=== PATIENT | female | born 1995 | race Caucasian/White ===

== ENCOUNTER 2018-09-06 15:11 | Emergency (ER) | payer OTHER, SELFPAY ==
[2018-09-06 16:48] LABS: Urine Bacteria 20-50 /HPF (<20); Urine Culture Reflex Order NOT NEEDED; Urine RBC <5 /HPF (NONE SEEN)
[2018-09-06 16:50] LABS: Urine Blood 1+ (NEG); Urine Glucose NEGATIVE (NEG); Urine Protein 1+ (NEG)
--- NOTE | 2018-09-06 17:05 | ER ---
Nurse's Notes [facility] Name: Ryan Hopkins Age: 23 yrs Sex: Female : 1995 Arrival Date: 09/06/2018 Time: 15:14 Bed 25 Private MD: Out, of [facility] Diagnosis: Influenza due to identified novel influenza A virus;Urinary tract infection, site not specified Presentation: 09/06 15:19 Presenting complaint: Patient states: Diarrhea, vomiting, productive cough, congestion, aj1 chest pain, back pain, body aches and fatigue since yesterday. Reports fever TMax 104.2. Transition of care: patient was not received from another setting of care. Onset of symptoms was September 05, 2018. Risk Assessment: Do you want to hurt yourself or someone else? Patient reports no desire to harm self or others. Initial Sepsis Screen: Does the patient meet any 2 criteria? HR > 90 bpm. No. Patient's initial sepsis screen is negative. Does the patient have a suspected source of infection? Yes: Productive cough/pneumonia. Care prior to arrival: None. 15:19 Method Of Arrival: Ambulatory aj 15:19 Acuity: TANNER 3 aj1 Triage Assessment: 15:21 General: Appears in no apparent distress. uncomfortable, Behavior is calm, cooperative, aj1 appropriate for age. Pain: Complains of pain in back and chest Pain currently is 5 out of 10 on a pain scale. Neuro: Level of Consciousness is awake, alert, obeys commands. Cardiovascular: Patient's skin is warm and dry. Respiratory: Airway is patent Respiratory effort is even, unlabored, Respiratory pattern is regular, symmetrical. GI: Reports diarrhea, nausea, vomiting. 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 - Social history:: Smoking status: Patient/guardian denies using tobacco. - Ebola Screening: : Patient denies travel to an Ebola-affected area in the 21 days before illness onset. Screenin:33 Abuse screen: Denies threats or abuse. Denies injuries from another. Nutritional rv screening: No deficits noted. Tuberculosis screening: No symptoms or risk factors identified. Fall Risk None identified. Assessment: 16:00 General: Appears in no apparent distress. comfortable, Behavior is calm, cooperative. rv 16:00 Pain: Denies pain. Neuro: Level of Consciousness is awake, alert, obeys commands, rv Oriented to person, place, time, situation. Cardiovascular: Capillary refill < 3 seconds. Respiratory: Airway is patent. GI: Abdomen is round. GI: Reports nausea, vomiting. : No signs and/or symptoms were reported regarding the genitourinary system. EENT: No signs and/or symptoms were reported regarding the EENT system. Derm: Skin is intact. Musculoskeletal: No signs and/or symptoms reported regarding the musculoskeletal system. 16:34 Reassessment: Patient appears in no apparent distress at this time. rv 17:33 Reassessment: Patient appears in no apparent distress at this time. Vital Signs: 15:21 BP 122 / 61; Pulse 108; Resp 20; Temp 98.8; Pulse Ox 96% on R/A; Weight 113.4 kg (R); aj1 Height 5 ft. 6 in. (167.64 cm) (R); Pain 5/10; 17:00 BP 106 / 63; Pulse 108; Resp 16; Temp 103.2(O); Pulse Ox 95% ; hj 17:00 BP 118 / 101; Pulse 99; Resp 19; Pulse Ox 95% on R/A; hj 15:21 Body Mass Index 40.35 (113.40 kg, 167.64 cm) aj1 ED Course: 15:14 Patient arrived in ED. mr 15:15 Out, [facility] is Private Physician. mr 15:20 Triage completed. aj1 15:21 Arm band placed on Patient placed in an exam room. aj1 15:24 [facility]C [facility] snw 15:24 Steve Moralez MD is Attending Physician. snw 15:44 Martha Rose, JORGE is Primary Nurse. tl3 16:00 Patient has correct armband on for positive identification. Bed in low position. Call rv light in reach. Side rails up X 1. Adult w/ patient. Pulse ox on. NIBP on. 16:32 Strep Sent. rv 16:32 Flu Sent. rv 17:34 No provider procedures requiring assistance completed. Patient did not have IV access hj during this emergency room visit. Administered Medications: 17:00 Drug: Rocephin (cefTRIAXone) 1 grams Route: IM; Site: right gluteus; 17:52 Follow up: Response: No adverse reaction rv 17:00 Drug: [place] 5 mg-325 mg 1 tabs Route: PO; hj 17:52 Follow up: Response: No adverse reaction rv 17:00 Drug: Tylenol 500 mg Route: PO; hj 17:52 Follow up: Response: No adverse reaction rv 17:00 Drug: Tamiflu 75 mg Route: PO; hj 17:51 Follow up: Response: No adverse reaction rv Outcome: 17:04 Discharge ordered by . mera 17:34 Discharged to home ambulatory. 17:34 Condition: good 17:34 Discharge instructions given to patient, Instructed on discharge instructions, follow up and referral plans. 17:52 Patient left the ED. rv Signatures: Lindsey Laguerre RN RN aj1 Shawna Haque, PHOTOCOMPOSING MACHINE OPERATOR-C PHOTOCOMPOSING MACHINE OPERATOR-Csnw PazChuyita mr Josemanuel Shah RN JORGE Martha Rose RN RN tl3 Dov Barros RN RN rv
--- NOTE | 2018-09-06 17:05 | EDPHYS ---
Physician Documentation [facility] Name: Ryan Hopkins Age: 23 yrs Sex: Female : 1995 Arrival Date: 09/06/2018 Time: 15:14 Bed 25 Private MD: Out, [facility] ED Physician Steve Moralez HPI: 09/06 16:06 This 23 yrs old Female presents to ER via Ambulatory with complaints of snw Fever, Vomiting/Diarrhea. 16:06 The patient reports fever, that was measured at 104 degrees Fahrenheit. Onset: The snw symptoms/episode began/occurred suddenly, last night. Modifying factors: there are no obvious modifying factors. Associated signs and symptoms: Pertinent positives: cough, decreased appetite, headache, nausea, sore throat, vomiting. Severity of symptoms: At their worst the symptoms were moderate in the emergency department the symptoms are unchanged. The patient has not experienced similar symptoms in the past, but family has similar symptoms, son. It is unknown whether or not the patient has recently seen a physician. DOLLYMAN: 15:21 LMP 08/08/2018 aj1 Historical: - Allergies: 15:21 No Known Allergies; aj1 - Home Meds: 15:21 None [Active]; aj1 - PMHx: 15:21 None; aj1 - PSHx: 15:21 Cholecystectomy; aj1 - Immunization history:: Flu vaccine is not up to date. - Social history:: Smoking status: Patient/guardian denies using tobacco. - Ebola Screening: : Patient denies travel to an Ebola-affected area in the 21 days before illness onset. ROS: 16:07 Eyes: Negative for injury, pain, redness, and discharge. snw 16:07 Neck: Negative for injury, pain, and swelling. 16:07 Cardiovascular: Negative for chest pain, palpitations, and edema. 16:07 Back: Negative for injury and pain, : Negative for injury, bleeding, discharge, and swelling, MS/Extremity: Negative for injury and deformity, Skin: Negative for injury, rash, and discoloration, Neuro: Negative for headache, weakness, numbness, tingling, and seizure. 16:07 Constitutional: Positive for body aches, chills, fatigue, fever, malaise, poor PO intake. 16:07 ENT: Positive for sore throat. 16:07 Respiratory: Positive for cough. 16:07 Abdomen/GI: Positive for nausea, vomiting, and diarrhea. Exam: 16:00 Head/Face: Normocephalic, atraumatic. Eyes: Pupils equal round and reactive to light, snw extra-ocular motions intact. Lids and lashes normal. Conjunctiva and sclera are non-icteric and not injected. Cornea within normal limits. Periorbital areas with no swelling, redness, or edema. ENT: Nares patent. No nasal discharge, no septal abnormalities noted. Tympanic membranes are juárez, full, and external auditory canals are clear. Oropharynx with mild redness, no swelling, or masses, exudates, or evidence of obstruction, uvula midline. Mucous membranes moist. Neck: Trachea midline, no thyromegaly or masses palpated, and no cervical lymphadenopathy. Supple, full range of motion without nuchal rigidity, or vertebral point tenderness. No Meningismus. Chest/axilla: Normal chest wall appearance and motion. Nontender with no deformity. No lesions are appreciated. 16:00 Respiratory: Lungs have equal breath sounds bilaterally, clear to auscultation and percussion. No rales, rhonchi or wheezes noted. No increased work of breathing, no retractions or nasal flaring. Abdomen/GI: Soft, non-tender, with normal bowel sounds. No distension or tympany. No guarding or rebound. No evidence of tenderness throughout. Back: No spinal tenderness. No costovertebral tenderness. Full range of motion. Skin: Warm, dry with normal turgor. Normal color with no rashes, no lesions, and no evidence of cellulitis. MS/ Extremity: Pulses equal, no cyanosis. Neurovascular intact. Full, normal range of motion. Neuro: Awake and alert, GCS 15, oriented to person, place, time, and situation. Cranial nerves II-XII grossly intact. Motor strength 5/5 in all extremities. Sensory grossly intact. Cerebellar exam normal. Normal gait. Psych: Awake, alert, with orientation to person, place and time. Behavior, mood, and affect are within normal limits. 16:00 Constitutional: The patient appears awake, obese, uncomfortable, flushed 16:00 Cardiovascular: Rate: tachycardic. Vital Signs: 15:21 BP 122 / 61; Pulse 108; Resp 20; Temp 98.8; Pulse Ox 96% on R/A; Weight 113.4 kg (R); aj1 Height 5 ft. 6 in. (167.64 cm) (R); Pain 5/10; 17:00 BP 106 / 63; Pulse 108; Resp 16; Temp 103.2(O); Pulse Ox 95% ; hj 17:00 BP 118 / 101; Pulse 99; Resp 19; Pulse Ox 95% on R/A; hj 15:21 Body Mass Index 40.35 (113.40 kg, 167.64 cm) aj1 MDM: 15:25 Patient medically screened. snw 17:06 Data reviewed: vital signs, nurses notes. Data interpreted: Pulse oximetry: on room air snw is 96 %. Interpretation: acceptable. Counseling: I had a detailed discussion with the patient and/or guardian regarding: the historical points, exam findings, and any diagnostic results supporting the discharge/admit diagnosis, lab results, the need for outpatient follow up, to return to the emergency department if symptoms worsen or persist or if there are any questions or concerns that arise at home. Special discussion: Based on the history and exam findings, there is no indication for further emergent testing or inpatient evaluation. I discussed with the patient/guardian the need to see the primary care provider for further evaluation of the symptoms. 09/06 15: Order name: Flu; Complete Time: 17:00 snw 09/06 15:25 Order name: Strep; Complete Time: 16:42 snw 09/06 15:25 Order name: Urine Culture w 09/06 15:25 Order name: Urine Microscopic Only; Complete Time: 16:49 snw 09/06 16:02 Order name: Urine Dipstick--Ancillary (enter results); Complete Time: 16:51 eb 09/06 16:02 Order name: Urine --Ancillary (enter results); Complete Time: 16:51 eb 09/06 16:42 Interpretation: Abnormal. snw 09/06 15:25 Order name: Urine Test (obtain specimen); Complete Time: 16:32 snw 09/06 15:25 Order name: Urine Dipstick-Ancillary (obtain specimen); Complete Time: 16:32 snw 09/06 16:39 Order name: Throat Culture EDMS Administered Medications: 17:00 Drug: Rocephin (cefTRIAXone) 1 grams Route: IM; Site: right gluteus; hj 17:52 Follow up: Response: No adverse reaction rv 17:00 Drug: [place] 5 mg-325 mg 1 tabs Route: PO; hj 17:52 Follow up: Response: No adverse reaction rv 17:00 Drug: Tylenol 500 mg Route: PO; hj 17:52 Follow up: Response: No adverse reaction rv 17:00 Drug: Tamiflu 75 mg Route: PO; hj 17:51 Follow up: Response: No adverse reaction rv Disposition: 09/07 08:27 Co-signature as Attending Physician, Steve Moralez MD I agree with the assessment and [facility] plan of care. Disposition: 09/06/18 17:04 Discharged to Home. Impression: Influenza due to identified novel influenza A virus, Urinary tract infection, site not specified. - Condition is Stable. - Discharge Instructions: Fever, Adult, Influenza, Adult, Urinary Tract Infection, Adult, Rehydration, Adult. - Prescriptions for Tamiflu 75 mg Oral Capsule - take 1 capsule by ORAL route every 12 hours for 5 days; 10 capsule. Zofran 4 mg Oral Tablet - take 1 tablet by ORAL route every 12 hours As needed; 20 tablet. Macrobid 100 mg Oral Capsule - take 1 capsule by ORAL route every 12 hours for 10 days; 20 capsule. Diclofenac Sodium 75 mg Oral Tablet Sustained Release - take 1 tablet by ORAL route 2 times per day; 30 tablet. - Work release form, Medication Reconciliation Form, Thank You Letter, Antibiotic Education, Prescription Opioid Use form. - Follow up: Private Physician; When: 2 - 3 days; Reason: Recheck today's complaints, Continuance of care, Re-evaluation by your physician. Follow up: Emergency Department; When: As needed; Reason: Worsening of condition. Signatures: Dispatcher [employer] Lindsey Montes RN RN Steve Fontanez MD MD cha Therrien, Shelly, YEN-C SUPERVISOR POWDERED SUGAR-Josemanuel Breaux RN RN hj Vicente, Ronaldo, RN RN rv Corrections: (The following items were deleted from the chart) 09/06 17:52 17:04 09/06/2018 17:04 Discharged to Home. Impression: Influenza due to identified rv novel influenza A virus; Urinary tract infection, site not specified. Condition is Stable. Forms are Medication Reconciliation Form, Thank You Letter, Antibiotic Education, Prescription Opioid Use. Follow up: Private Physician; When: 2 - 3 days; Reason: Recheck today's complaints, Continuance of care, Re-evaluation by your physician. Follow up: Emergency Department; When: As needed; Reason: Worsening of condition. snw
[2018-09-06] MEDS ORDERED: HYDROCODONE/APAP 5/325 MG TAB ONE (17:11)
[2018-09-06] MEDS ORDERED: OSELTAMIVIR 75 MG CAP ONE (17:11)
[2018-09-06] MEDS ORDERED: ACETAMINOPHEN 500 MG TAB ONE (17:12)
[2018-09-06] MEDS ORDERED: CEFTRIAXONE 1000 MG/VIAL ONE (17:12)
[2018-09-06 18:22] VITALS: BP 118/101; TEMP 103.2; O2SAT 95
== END 2018-09-06 17:52 | disposition home or self-care (01) ==
LOC: ER 15:11
DX: J10.1 Influenza due to other identified influenza virus with other respiratory manifestations (principal); N39.0 Urinary tract infection, site not specified
CPT/HCPCS: 81003; 81015; 81025; 87070; 87081; 87086; 87088; 87804; 96372; 99283